=== PATIENT | male | born 1980 | race Two or more races ===

== ENCOUNTER 2016-12-28 18:32 | Emergency (ER) | payer OTHER, BC ==
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
== END 2016-12-28 19:35 | disposition home or self-care (01) ==
LOC: CFTX 18:32
DX: S63.502A Unspecified sprain of left wrist, initial encounter (principal); S20.211A Contusion of right front wall of thorax, initial encounter; V49.40XA Driver injured in collision with unspecified motor vehicles in traffic accident, initial encounter; Y92.410 Unspecified street and highway as the place of occurrence of the external cause
CPT/HCPCS: 29125; 71020; 73110; 99284